=== PATIENT | male | born 1965 | race African-American/Black ===

== ENCOUNTER 2018-01-21 23:51 | Emergency (ER) | payer SELFPAY ==
[~2018-01-21] VITALS: Ht 177.8 cm; Wt 93.6 kg
[2018-01-22 00:29] LABS: APPEARANCE SL.HAZY ((CLEAR)); BILIRUBIN NEGATIVE; BLOOD MODERATE; COLOR YELLOW ((YELLOW)); GLUCOSE (STRIP) NEGATIVE; KETONES NEGATIVE; LEUKOCYTES NEGATIVE; NITRITE NEGATIVE; PROTEIN (STRIP) 30; SPECIFIC GRAVITY 1.025 (1.000-1.030); UROBILINOGEN 0.2 MG/DL (0.2-1.0)
[2018-01-22 00:32] LABS: BACTERIA NONE SEEN /HPF; EPITHELIAL CELLS RARE /HPF; MUCUS TRACE /LPF; RED BLOOD CELLS TNTC /HPF (0-5); UCUL ADDED? YES; WHITE BLOOD CELLS 0-5 /HPF (0-5)
[2018-01-22 00:33] LABS: HEMOGLOBIN 16.2 G/DL (12.5-16.6); MCH 28.7 PG (29.0-34.0); MCHC 34.5 G/DL (30.0-36.0); MCV 83.3 FL (86-99); RBC DIS.WIDTH-CV 12.7 % (11.8-14.6); RBC DIS.WIDTH-SD 38.5 % (39-53); RED BLOOD COUNT 5.64 M/uL (4.00-5.50); WHITE BLOOD COUNT 10.3 K/uL (4.1-10.2)
[2018-01-22 00:41] LABS: CHLORIDE 104 mEq/L (99-109); POTASSIUM 3.8 mEq/L (3.7-5.4); SODIUM 141 mEq/L (136-147)
[2018-01-22 00:43] LABS: GLUCOSE 173 mg/dL (70-99)
[2018-01-22 00:47] LABS: CREATININE 1.5 mg/dL (0.6-1.3); GFR ESTIMATE (CALCULATED) > 59 mL/min/ (58.99-99999)
[2018-01-22 00:48] LABS: UREA NITROGEN (BUN) 17 mg/dL (9-23)
[2018-01-22] MEDS ORDERED: FLOMAX0.4 MG PO (01:21)
[2018-01-22] MEDS ORDERED: PERCOCET 5/31 TABLET PO (01:22)
[2018-01-22] MEDS ORDERED: ZOFRAN4 MG PO (01:22)
[2018-01-22] MEDS ORDERED: TORADOL10 MG PO (01:22)
[2018-01-22 01:42] VITALS: BP 152/97
[2018-01-22 02:17] LABS: PLAT.SUFFICIENCY ADEQUATE; PLATELET COUNT 304 K/uL (156-360)
== END 2018-01-22 01:44 | disposition home or self-care (01) ==
LOC: EME 23:51
DX: N13.2 Hydronephrosis with renal and ureteral calculous obstruction (principal); Z87.442 Personal history of urinary calculi
CPT/HCPCS: 74176; 80048; 81003; 85027; 87086; 99281; 99285; J1885; J2405; J7030